=== PATIENT | male | born 1970 | race Two or more races ===

== ENCOUNTER 2024-08-13 16:01 | Emergency (ER) | payer BC, OTHER ==
[~2024-08-13] VITALS: Ht 182.9 cm; Wt 90.0 kg
[2024-08-13] MEDS ORDERED: MORPHINE SULFATE 4 MG/ML SYR/VIAL IV ONE (16:30)
[2024-08-13] MEDS ORDERED: ONDANSETRON HCL 4 MG/2 ML VIAL IV ONE (16:30)
[2024-08-13 16:33] LABS: Basophils # (auto) 0.1 10 ^3/uL (0-0.2); Basophils % (auto) 0.7 % (0.0-2.0); Eosinophils # (auto) 0.2 10 ^3/uL (0-0.8); Eosinophils % (auto) 2.3 % (0.0-7.0); Hematocrit 45.1 % (41.0-53.0); Hemoglobin 15.8 g/dL (13.5-17.5); Lymphocytes # (auto) 1.6 10 ^3/uL (0.4-5.4); Lymphocytes % (auto) 17.3 % (10.0-50.0); Mean Corpuscular Hemoglobin 31.3 pg (28.0-32.0); Mean Corpuscular Hgb Conc. 35.1 g/dL (32.0-36.0); Mean Corpuscular Volume 89.3 fL (80.0-100.0); Monocytes # (auto) 0.6 10 ^3/uL (0-1.3); Monocytes % (auto) 6.1 % (0.0-12.0); Neutrophils # (auto) 6.8 10 ^3/uL (1.6-8.6); Neutrophils % (auto) 73.6 % (37.0-80.0); Platelet Count (auto) 230 10^3/uL (140-450); Red Blood Cells 5.05 10^6/uL (4.5-5.90); Red Cell Distribution Width 13.6 % (11.8-14.3); White Blood Cell 9.2 10^3/uL (4.4-10.8)
[2024-08-13] MEDS ORDERED: IOHEXOL 350 MG/ML 100ML IJ ONE (16:36)
[2024-08-13 16:42] LABS: Chloride 102 mmol/L (98-107); Potassium 4.2 mmol/L (3.5-5.1); Sodium 135 mmol/L (136-145)
[2024-08-13 16:43] LABS: Anion Gap 5 (5-15); Calcium 9.9 mg/dL (8.7-10.4); Carbon Dioxide 28 mmol/L (20-30)
[2024-08-13 16:48] LABS: BUN/Creatinine Ratio 11.5 (10.0-20.0); Blood Urea Nitrogen 13 mg/dL (9-23); Glucose 110 mg/dL (74-106)
[2024-08-13 16:53] LABS: INR 1.06 (0.9-1.15); Partial Thromboplastin Time 28.3 SEC (24.5-34.5); Prothrombin Time 11.2 sec (9.3-11.8)
[2024-08-13 20:12] VITALS: BP 154/96; PULSE 65; RESP 16; TEMP 98.4; O2SAT 96
== END 2024-08-13 18:59 | disposition home or self-care (01) ==
LOC: ER 16:01
DX: R07.89 Other chest pain (principal); I10 Essential (primary) hypertension; Z96.612 Presence of left artificial shoulder joint
CPT/HCPCS: 36415; 71260; 74177; 80048; 83880; 84484; 85025; 85610; 85730; 93005; 99285; Q9967